=== PATIENT | male | born 1955 | race Caucasian/White ===

== ENCOUNTER 2024-01-18 10:21 | Emergency (ER) | payer MEDICARE, OTHER ==
[~2024-01-18] VITALS: Ht 190.5 cm; Wt 103.0 kg
[2024-01-18 12:47] VITALS: BP 154/82; PULSE 60; RESP 16; TEMP 98; O2SAT 97
[2024-01-18] MEDS: LIDOCAINE W/ EPINEPHRINE 1% 20ML VIAL ID ONE (12:59)
[2024-01-18] MEDS: HYDROcodone-ACET 5/325MG TAB PO ONE (12:59)
[2024-01-18] MEDS ORDERED: MUPI2OIN2 TOP (13:21)
[2024-01-18] MEDS ORDERED: HYDR-4902 PO (13:21)
[2024-01-18] MEDS ORDERED: CEPH500C PO (14:04)
== END 2024-01-18 14:20 | disposition home or self-care (01) ==
LOC: ER 10:21
DX: S01.81XA Laceration without foreign body of other part of head, initial encounter (principal); W22.8XXA Striking against or struck by other objects, initial encounter; Y93.89 Activity, other specified; Y92.89 Other specified places as the place of occurrence of the external cause; Y99.8 Other external cause status
CPT/HCPCS: 12013; 70450

== ENCOUNTER 2025-04-18 07:50 | Emergency (ER) | payer MEDICARE, OTHER ==
[~2025-04-18] VITALS: Ht 190.5 cm; Wt 100.0 kg
[~2025-04-18 07:50] MED LIST: CEPH500C PO; HYDR-4902 PO; MUPI2OIN2 TOP
--- NOTE | 2025-04-18 08:07 | ED.PDOC ---
Eye-HPI HPI Comments A 70 YEAR OLD MALE PRESENTS TO THE ED WITH COMPLAINT OF LEFT EYE IRRITATION AND REDNESS. PATIENT STATES HE HAS CUTTING A BOARD 2 DAYS AGO AND THINKS A SMALL PIECE OF THE NAIL THAT WAS ON THIS BOARD ACCIDENTALLY BROKE OFF AND HIT HIS LEFT EYE. PATIENT REPORTS HE IS NOW EXPERIENCING LEFT EYE IRRITATION, REDNESS, AND A FOREIGN BODY SENSATION. PATIENT DENIES VISION CHANGES, FEVER, CHILLS, SHORTNESS OF BREATH, CHEST PAIN, ABDOMINAL PAIN, NAUSEA, VOMITING, HEADACHE, OR OTHER COMPLAINTS. NO OTHER SYMPTOMS OR MODIFYING FACTORS AT THIS TIME. PATIENT IS ALERT, ORIENTED X 4, AND HAS STEADY GAIT. Chief Complaint: Eye Problem Time Seen by MD: 07:58 Reviewed Notes: Nurses Notes, Medications, Allergies Allergies: Coded Allergies: NO KNOWN ALLERGIES (Unverified , 01/18/24) Home Meds Active Scripts Tobramycin Sulfate (Tobrex) [address], 2 DROP OP QID, #5 ML Prov:AARON MODI 04/18/25 Cephalexin Monohydrate (Cephalexin) 500 Mg Cap, 1 CAP PO QID for 5 Days, #20 CAP Prov:EVELIO VINES 01/18/24 Hydrocodone-Acetaminophen (Hydrocodone Bitartrate/AC 5-325 mg) 1 Tab Tab, 1 TAB PO Q6HP PRN, #12 TAB Prov:EVELIO VINES 01/18/24 Mupirocin (Pseudomonas Fluores (Mupirocin) 2 % Oin, 2 % TOP BID, #22 GM Prov:EVELIO VINES 01/18/24 Information Source: Patient Mode of Arrival: Ambulatory Timing: Days Duration: Since onset, Days Quality: Pain, Red Eye Location: Left Lids: Normal Conjunctiva: Location, Subconjunctival hemorrhag Cornea: Left eye, Abrasion Pupils: Normal EOM: Normal Fundus: Normal Slit lamp exam: Left eye, Corneal abrasion, Flourescein stain:, Positive Anterior chamber: Normal Mouth Location: Pharynx Mouth: Normal ENT Ear Exam: Normal, Normal, Normal Nose: Normal Sinuses: Normal Oropharynx: Normal Onset: Spontaneous Throat Exposed to: None History of: None Last Tetanus: Unknown Modifying factors: Nothing Associated signs and symptoms: None Past Medical History PAST MEDICAL HISTORY: Denies Surgical History: Denies all surgeries Family History Family History: Reviewed,noncontributory to illness, No family hx of Cancer, No family hx of DM, No family hx of Heart zoila, No family hx of HTN, No family hx ofKidney zoila, No family hx of Liver zoila, No family hx of Lung zoila, No family hx of Stroke Social History Smoker: Non-Smoker Alcohol: Denies ETOH Use Drugs: Denies Drug Use Lives In: Home Constitutional: denies: chills, diaphoresis, fatigue, fever, malaise, sweats, weakness, others EENTM: reports: eye pain (LEFT EYE IRRITATION), eye redness; denies: blurred vision, double vision, ear bleeding, ear discharge, ear drainage, ear pain, ear ringing, hearing loss, mouth pain, mouth swelling, nasal discharge, nose bleeding, nose congestion, nose pain, photophobia, tearing, throat pain, throat swelling, voice changes, others Respiratory: denies: cough, hemoptysis, orthopnea, SOB at rest, shortness of breath, SOB with excertion, stridor, wheezing, others Cardiovascular: denies: chest pain, dizzy spells, diaphoresis, Dyspnea on exertion, edema, irregular heart beat, left arm pain, lightheadedness, palpitations, PND, syncope, others Gastrointestinal: denies: abdomen distended, abdominal pain, blood streaked bowels, constipated, diarrhea, dysphagia, difficulty swallowing, hematemesis, melena, nausea, poor appetite, poor fluid intake, rectal bleeding, rectal pain, vomiting, others Genitourinary: denies: burning, dysuria, flank pain, frequency, hematuria, incontinence, penile discharge, penile sore, pain, testicle pain, testicle swelling, urgency, others Neurological: denies: dizziness, fainting, headache, left sided numbness, left sided weakness, numbness, paresthesia, pre-existing deficit, right sided numbness, right sided weakness, seizure, speech problems, tingling, tremors, weakness, others Musculoskeletal: denies: back pain, gout, joint pain, joint swelling, muscle pain, muscle stiffness, neck pain, others Integumetry: denies: bruises, change in color, change in hair/nails, dryness, laceration, lesions, lumps, rash, wounds, others Allergic/Immunocompromised: denies: Difficulty Healing, Frequent Infections, Hives, Itching, others Hematologic/Lymphatic: denies: anemia, blood clots, easy bleeding, easy bruising, swollen glands, others Endocrine: denies: excessive hunger, excessive sweating, excessive thirst, excessive urination, flushing, intolerance to cold, intolerance to heat, unexplained weight gain, unexplained weight loss, others Psychiatric: denies: anxiety, bipolar disorder, depression, hopeless, panic disorder, schizophrenia, sleepless, suicidal, others All Other Systems: Reviewed and Negative Physical Exam General Appearance: No Apparent Distress, Normal HEENT: Cornea (L) (WOOD LAMP EXAM: MILD CORNEA ABRASION, NO FB. VISUAL ACUITY: R-20/25, L-20/40. MILD LEFT SCLERA REDNESS AND BLISTER. ), Normal ENT Inspection, PERRL/EOMI, Pharynx Normal, TMs Normal Neck: Full Range of Motion, Non-Tender, Normal, Normal Inspection Respiratory: Chest Non-Tender, Lungs Clear, No Accessory Muscle Use, No Respiratory Distress, Normal Breath Sounds Cardiovascular: No Edema, No JVD, No Murmur, No Gallop, Normal Peripheral Puls es, Regular Rate/Rhythm Breast Exam: Deferred Gastrointestinal: No Organomegaly, Non Tender, No Pulsatile Mass, Normal Bowel Sounds, Soft Genitalia: Deferred Pelvic: Deferred Rectal: Deferred Extremities: No calf tenderness, Normal capillary refill, Normal inspection, Normal range of motion, Non-tender, No pedal edema Musculoskeletal : Apperance: Normal Neurologic: Alert, webmethods consultant II-XII nml as Tested, No Motor Deficits, Normal Affect, Normal Mood, No Sensory Deficits Cerebellar Function: Normal Reflexes: Normal Skin: Dry, Normal Color, Warm Peripheral Pulses: 2+ carotid (R), 2+ carotid (L) Lymphatic: No Adenopathy Was a procedure done? Was a procedure done?: Yes Sedation Sedation?: No Foreign Body Removal Foreign body in: Eye (LEFT EYE) Anesthetic: Other (TETRACAINE) Prep: Prep, Saline, Irrigation (LEFT EYE WITH NORMAL SALINE 50ML. ) Procedure: Not Identified (FB, MILD CORNEA ABRASION. ), Other (+CORNEAL ABRASION OF LEFT EYE SEEN, NO FOREIGN BODY SEEN) Informed consent obtained: No Risks/benefits/alt described: Yes EENT DIFF Eye: Conjunctivitis, Allergic, Bacterial, Viral, Corneal Abrasion, Foreign Body-Corneal, Foreign Body-Lid, Hordeolum (stye) Ear: N/A Nose: N/A Mouth: N/A Sore Throat: N/A X-Ray, Labs, Meds, VS Vital Signs Date Time Temp Pulse Resp B/P (MAP) Pulse Ox O2 Delivery O2 Flow Rate FiO2 04/18/25 07:51 98.1 55 13 139/78 96 98.1 X-Ray, Labs, Meds, VS Comment EXTERNAL MEDICAL RECORDS REVIEWED: [NONE] INDEPENDENT HISTORIANS: [NONE] SOCIAL DETERMINANTS OF HEALTH: [NONE] LABS ORDERED: NONE REVIEWED AND INTERPRETED RESULTS: NONE IMAGING ORDERED: NONE TREATMENTS ORDERED: NONE PROCEDURES PERFORMED: WOOD'S LAMP EXAMINATION CRITICAL CARE TIME: NONE I HAVE DISCUSSED THE PATIENT WITH THE ATTENDING PHYSICIAN LATRICE AND HE AGREES WITH THE PATIENT'S PLAN OF CARE AND DISPOSITION. BASED ON HISTORY OF PRESENT ILLNESS, AND PHYSICAL EXAM, PATIENT WILL BE DISCHARGED HOME. DISCUSSED PLAN FOR DISCHARGE HOME WITH RX [TOBREX EYE DROPS]. MEDICATION WARNINGS GIVEN. SHARED DECISION MAKING: DISCUSSED WITH PATIENT THAT THEIR WORKUP WAS NORMAL. PATIENT INSTRUCTED TO FOLLOW UP WITH PRIMARY CARE PROVIDER IN 1-2 DAYS FOR RE- EVALUATION OF SYMPTOMS. PATIENT VERBALIZES UNDERSTANDING TO RETURN TO ED FOR NEW OR WORSENING SYMPTOMS OR IF FOLLOW UP WITH PCP CANNOT BE OBTAINED. PATIENT FEELS COMFORTABLE GOING HOME AT THIS TIME. ALL QUESTIONS ADDRESSED AT TIME OF DISCHARGE. Time of 1ST Reevaluation: 08:18 Reevaluation 1ST: Improved Patient Education/Counseling: Diagnosis, Treatment, Need For Follow Up Family Education/Counseling: Diagnosis, Treatment, Need For Follow Up Medical Screening: No EMC Exist At This Time SEPSIS Sepsis Screen Date sepsis recognized/suspect: Apr 18, 2025 Time Sepsis recognized/suspect: 0751 Recent Procedure: No On Antibiotic Therapy: No Respiratory Rate >20: No Heart Rate >90: No Temp<36 C (96.8 F) or >38.3 C: No SBP <90 or MAP <65 mmHG: No New Acute Mental Status Change: No Is the patient on CPAP, BIPAP,: No Vital Signs Date Time Temp Pulse Resp B/P (MAP) Pulse Ox O2 Delivery O2 Flow Rate FiO2 04/18/25 07:51 98.1 55 13 139/78 96 98.1 Departure 1 Departure Time of Disposition: 08:20 Impression: Primary Impression: Corneal abrasion, left Qualified Codes: S05.02XA - Injury of conjunctiva and corneal abrasion without foreign body, left eye, initial encounter Disposition: HOME / SELF CARE / HOMELESS Condition: Stable Additional Instructions: FOLLOW-UP WITH PCP IN 1 TO 2 DAYS. TAKE MEDICATIONS PRESCRIBED. RETURN TO ED FOR ANY NEW OR WORSENING SYMPTOMS. e-Prescriptions Tobramycin Sulfate (Tobrex) [address] 2 DROP OP QID, #5 ML Prov: AARON MODI 04/18/25 Discharged With: Self Critical Care Note Critical Care Time?: No Stability Stability form required: No I personally scribed for AARON MODI ([email or web address]) on 04/18/25 at 08:07. Electronically submitted by Jose Gibbs ([email or web address]). I personally scribed for AARON MODI ([email or web address]) on 04/18/25 at 08:13. Electronically submitted by Jose Gibbs ([email or web address]). AARON MODI Apr 18, 2025 08:07
[2025-04-18 08:13] VITALS: BP 139/78; PULSE 55; RESP 13; TEMP 98.1; O2SAT 96
[2025-04-18] MEDS ORDERED: TOB03OS OP (08:13)
== END 2025-04-18 08:21 | disposition home or self-care (01) ==
LOC: ER 07:50
DX: S05.02XA Injury of conjunctiva and corneal abrasion without foreign body, left eye, initial encounter (principal); X58.XXXA Exposure to other specified factors, initial encounter; Y93.89 Activity, other specified; Y92.89 Other specified places as the place of occurrence of the external cause; Y99.8 Other external cause status